=== PATIENT | female | born 1970 | race Caucasian/White ===

== ENCOUNTER → 2016-12-04 | Outpatient (CLI) | payer MEDICARE, OTHER ==
--- NOTE | 2016-12-04 11:57 | MM ---
Reason for exam: clinical finding. Last mammogram was performed 1 year and 10 months ago. Physical Findings: Nurse did not find any significant physical abnormalities on exam. MG 3D Diag Mammo W/Cad LETTY Bilateral CC and MLO view(s) were taken. XCCL view(s) were taken of the right breast. Prior study comparison: February 01, 2015, mammogram, performed at [facility]. There are scattered fibroglandular densities. Nodular asymmetry 11 o'clock right breast is unchanged. Accessory breast tissue noted at the right axilla. No significant new findings when compared with previous films. These results were verbally communicated with the patient and result sheet given to the patient on 12/04/16. ASSESSMENT: Incomplete: need additional imaging evaluation, BI-RAD 0 RECOMMENDATION: Ultrasound of the right breast. (as ordered by the clinician)
--- NOTE | 2016-12-04 11:59 | USB ---
Reason for exam: clinical finding. US Breast RT Right breast ultrasound including all four quadrants, the retroareolar region and axilla demonstrates benign appearing lymph node in the right axilla. No cystic or solid lesion seen. These results were verbally communicated with the patient and result sheet given to the patient on 12/04/16. ASSESSMENT: Negative, BI-RAD 1 RECOMMENDATION: Routine screening mammogram of both breasts in 1 year.
== END | disposition home or self-care (01) ==
LOC: RADMAMWWP 09:18
PROVIDERS: ATTEND Surgery
DX: N64.4 Mastodynia (principal); Q83.1 Accessory breast
CPT/HCPCS: 76641; G0204; G0279

== ENCOUNTER → 2019-08-11 | Outpatient (CLI) | payer MEDICARE ==
[2019-08-11 11:09] VITALS: BP 120/78; PULSE 100; RESP 16; TEMP 98.1; BMI 30.7
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
== END | disposition home or self-care (01) ==
LOC: WWCWWP 10:46
PROVIDERS: ATTEND Surgery
DX: Z53.9 Procedure and treatment not carried out, unspecified reason (principal)

== ENCOUNTER 2021-10-15 12:17 | Emergency (ER) | payer MEDICARE ==
[2021-10-15] MEDS ORDERED: ACETAMINOPHEN TAB 500 MG TAB PO STA (13:39)
[2021-10-15] MEDS ORDERED: SODIUM CHLORIDE 0.9% 1,000 ML IV ONE (13:39)
[2021-10-15] MEDS ORDERED: IBUPROFEN 600 MG TAB PO STA (13:39)
[2021-10-15] MEDS ORDERED: ALBUTEROL HFA INHALER INHALATION STA (13:40)
--- NOTE | 2021-10-15 13:42 | ED ---
General Adult HPI - General Chief complaint: Chest Pain Stated complaint: Covid symptoms Time Seen by Provider: 10/15/21 13:15 Source: patient, RN notes reviewed, old records reviewed Mode of arrival: wheelchair - History of Present Illness Initial comments: This is a 51-year-old female presents emergency Department complaining that starting yesterday she had a sore throat and a fever and complains of a little bit of a cough per patient states she has some chest tightness but no chest pain. Patient states she smoked up until May. Patient denies any loss of taste or smell patient denies any diarrhea. Patient denies any abdominal pain patient denies nausea vomiting. Patient states she does have exposure to people who she believes have COVID. Patient denies any patient denies numbness weakness. - Related Data Home Medications Medication Instructions Recorded Confirmed QUEtiapine [SEROquel] 800 mg PO HS 05/02/14 08/11/19 lamoTRIgine [LaMICtal] 200 mg PO BID 05/02/14 08/11/19 Metoprolol Tartrate [Lopressor] 50 mg PO BID 01/01/16 08/11/19 Lurasidone HCl [Latuda] 60 mg PO DAILY 08/11/19 08/11/19 Previous Rx's Medication Instructions Recorded Ibuprofen [Motrin] 800 mg PO Q8HR PRN #30 tab 06/21/15 Dexamethasone [Decadron] 6 mg PO DAILY #7 tablet 10/15/21 Allergies Allergy/AdvReac Type Severity Reaction Status Date / Time morphine AdvReac Nausea & Verified 10/15/21 13:21 Vomiting Review of Systems ROS Statement: Those systems with pertinent positive or pertinent negative responses have been documented in the HPI. ROS Other: All systems not noted in ROS Statement are negative. Past Medical History Past Medical History: GERD/Reflux, Pneumonia, Pulmonary Embolus (PE) Additional Past Medical History / Comment(s): KIDNEY STONES,BRONCHITIS, History of Any Multi-Drug Resistant Organisms: None Reported Past Surgical History: Appendectomy, Section, Cholecystectomy, Hysterectomy Additional Past Surgical History / Comment(s): UMBILICAL HERNIA REPAIR BABY, HIATAL HERNIA SX 07-25-14, PARTIAL HYSTERECTOMY, Past Anesthesia/Blood Transfusion Reactions: No Reported Reaction Additional Past Anesthesia/Blood Transfusion Reaction / Comment(s): CLAUSTERPHOBIA Past Psychological History: Anxiety, Bipolar, Depression, PTSD Smoking Status: Former smoker Past Alcohol Use History: Rare Past Drug Use History: None Reported - Past Family History Father Family Medical History: Diabetes Mellitus Additional Family Medical History / Comment(s): ETOH, BIPOLAR, Mother Family Medical History: Coronary Artery Disease (CAD), Hyperlipidemia General Exam - General Exam Comments Initial Comments: GENERAL: Patient is well-developed and well-nourished. Patient is nontoxic and well- hydrated and is in mild distress. ENT: Neck is soft and supple. No significant lymphadenopathy is noted. Oropharynx is clear. Moist mucous membranes. Neck has full range of motion without eliciting any pain. T EYES: The sclera were anicteric and conjunctiva were pink and moist. Extraocular movements were intact and pupils were equal round and reactive to light. Eyelids were unremarkable. PULMONARY: Unlabored respirations. Good breath sounds bilaterally. Patient has slight expiratory wheeze CARDIOVASCULAR: There is a regular rate and rhythm without any murmurs gallops or rubs. ABDOMEN: Soft and nontender with normal bowel sounds. No palpable organomegaly was noted. There is no palpable pulsatile mass. SKIN: Skin is clear with no lesions or rashes and otherwise unremarkable. NEUROLOGIC: Patient is alert and oriented x3. Cranial nerves II through XII are grossly intact. Motor and sensory are also intact. Normal speech, volume and content. Symmetrical smile. MUSCULOSKELETAL: Normal extremities with adequate strength and full range of motion. No lower extremity swelling or edema. No calf tenderness. LYMPHATICS: No significant lymphadenopathy is noted PSYCHIATRIC: Normal psychiatric evaluation. Course Vital Signs 10/15/21 10/15/21 13:16 13:38 Temperature 101.1 F H 102.9 F H Pulse Rate 96 Respiratory 18 Rate Blood Pressure 128/75 O2 Sat by Pulse 95 Oximetry Medical Decision Making - Medical Decision Making EKG shows sinus rhythm at 94 bpm WV interval 238 QRS is 94 QT interval 324 QTC is 405. Patient's EKG shows no ST segment elevation or depression. Patient does have an occasional PAC. Chest x-ray shows some early bilateral infiltrates Patient received a monoclonal antibodies. She received Motrin and Tylenol as well. Patient got a fluid bolus. Patient be sent home on steroids. - Lab Data Lab Results 10/15/21 Range/Units 13:24 Coronavirus (PCR) Detected A (Not Detectd) Disposition Clinical Impression: Pneumonia due to COVID-19 virus Disposition: HOME SELF-CARE Instructions (If sedation given, give patient instructions): Coronavirus Disease 2019 (COVID-19) Prescriptions: Dexamethasone [Decadron] 6 mg PO DAILY #7 tablet Is patient prescribed a controlled substance at d/c from ED?: No Referrals: Nonstaff,Physician [Primary Care Provider] - 1-2 days Time of Disposition: 14:31
--- NOTE | 2021-10-15 14:16 | XR ---
EXAMINATION TYPE: XR chest 1V portable DATE OF EXAM: 10/15/2021 Comparison: 01/01/2016 Clinical History: 51-year-old female Short of breath and fever. Findings: Heart normal size. Aorta within normal limits. Pulmonary vasculature within normal limits. There are patchy opacities in both lower lungs. No pleural effusion. Impression: Patchy basilar opacities. Unable to exclude infiltrates/pneumonia.
[2021-10-15] MEDS ORDERED: BAMLANIVIMAB (EUA) 700 MG, ETESEVIMAB (EUA) 1,400 MG in SODIUM CHLORIDE 0.9% 50 ML IVPB ONE (14:30)
[2021-10-15] MEDS ORDERED: dexAMETHasone 2 MG TAB PO STA (14:32)
[2021-10-15] MEDS ORDERED: SODIUM CHLORIDE 0.9% 50 ML IVPB ONE (15:00)
[2021-10-15 17:18] VITALS: BP 119/61; PULSE 93; RESP 20; TEMP 99.5
== END 2021-10-15 16:37 | disposition home or self-care (01) ==
LOC: EC 12:17
DX: U07.1 COVID-19 (principal); J12.82 Pneumonia due to coronavirus disease 2019; K21.9 Gastro-esophageal reflux disease without esophagitis; F41.9 Anxiety disorder, unspecified; F31.9 Bipolar disorder, unspecified; F43.12 Post-traumatic stress disorder, chronic; Z88.5 Allergy status to narcotic agent; Z86.711 Personal history of pulmonary embolism; Z87.442 Personal history of urinary calculi; Z90.49 Acquired absence of other specified parts of digestive tract; Z90.710 Acquired absence of both cervix and uterus; Z87.891 Personal history of nicotine dependence
CPT/HCPCS: 96360; 99285; M0245; 71045; 87635; 93005

== ENCOUNTER 2023-01-16 11:56 | Day surgery (SDC) | payer MEDICARE ==
[~2023-01-16 11:56] MED LIST: DEXAMETHASONE SOD PHOSPHATE 4 MG/ML 1 ML VIAL IV ONE; HYDROmorphone 0.5 MG/0.5 ML SYRINGE IVP PRN; LACTATED RINGERS 1,000 ML IV SCH; LIDOCAINE 1% (10MG/ML) FOR IV START INTRADERMA PRN; ONDANSETRON 4 MG/2 ML VIAL IVP ONE
[2023-01-16 12:42] VITALS: TEMP 97.2
[2023-01-16] MEDS ORDERED: PROPOFOL 10 MG/ML 20 ML VIAL IV ONE (13:34)
[2023-01-16] MEDS ORDERED: HYDROmorphone (PF) 1 MG/ML ONE (13:34)
[2023-01-16] MEDS ORDERED: LIDOCAINE 2% INJ 20 MG/ML (2 ML VIAL) ONE (13:34)
[2023-01-16] MEDS ORDERED: ePHEDrine 50 MG/ML 1 ML VIAL ONE (13:34)
[2023-01-16] MEDS ORDERED: fentaNYL (PF) 50 MCG/ML 2 ML AMP ONE (13:34)
[2023-01-16] MEDS ORDERED: MIDAZOLAM 2 MG/2 ML VIAL ONE (13:34)
[2023-01-16] MEDS ORDERED: LACTATED RINGERS 1,000 ML IV ONE (15:52)
--- NOTE | 2023-01-16 16:03 | XR ---
Intraoperative/procedural fluoroscopic services were provided for left knee hardware removal. Total f luoroscopy time is 2 minutes 29 seconds with a total of 3 submitted images to PACS. Total [id number] G ycm2. Please see the operative note for further details.
--- NOTE | 2023-01-16 16:14 | P.OP ---
Date of Procedure: 01/16/23 Preoperative Diagnosis: 1. Symptomatic hardware, left knee 2. Prior left tibial plateau fracture status post open reduction internal fixation 3. Current every day cigarette smoker 4. Severe osteopenia Postoperative Diagnosis: Same Procedure(s) Performed: Hardware removal deep, left knee (proximal tibia) Anesthesia: PAGE Surgeon: Lorenzo Erwin Lawn Maintenance Worker #1: Annabelle Allred Estimated Blood Loss (ml): 50 Pathology: none sent Condition: stable Disposition: PACU Indications for Procedure: The patient is very pleasant 52-year-old female with a medical history significant for smoking one half pack of cigarettes a day and osteopenia who sustained a prior left tibial plateau fracture and underwent open reduction and internal fixation at an outside facility. She went on to heal her fracture but has had continued pain. Some of this pain seemed to be achieved able to her hardware. We also discussed the possibility of arthritis and/or intra-articular pathology contributing to her pain. Having failed nonsurgical treatment and having x-rays show healed fractures requested proceeding with hardware removal. I long discussion of the potential risks and Rotations of surgery including but certainly not limited to risks from anesthesia, superficial or deep infection, delayed wound healing, damage to local blood vessels or nerves, intraoperative fracture, postoperative fracture, continued or worsened pain, DVT, PE, other medical complications, a generalized to satisfaction with her surgical outcome, need for further surgery, and possibly loss of life or limb. The patient wished understanding of these potential complications will also is antalgic but other less common complications are possible. She understands the potential for continued pain in her knee. Description of Procedure: Patient identified in preoperative holding and the correct left leg was marked with my initials. I reviewed the consent form with the patient and her family. All their questions were answered. The patient was then brought back to the operating room by anesthesia. She was positioned on the vertebral her general anesthetic and preoperative antibiotics were given. A tourniquet was applied to the proximal aspect the left leg. The right leg was secured to the table with foam and tape. A bone foam ramp was placed on the left leg to facilitate imaging. A nonsterile 10:15 drape was used to isolate the left leg. A p resurgical scrub was performed with a chlorhexidine scrub brush. The left leg was then prepped and draped in the standard sterile fashion. Prior to starting surgery timeout was performed identifying the correct patient, operative extremity, and procedure. The patient's leg was then elevated, exsanguinated with an Esmarch bandage, and the tourniquet was inflated to 250 mmHg. I began by outlining the prior scar over the posterior medial aspect of the proximal tibia. Skin incision was made with a scalpel dissection was carried down carefully through subcu tissue with tenotomy scissors. The periosteum over the tibia was sharply incised in line with the skin incision. The plate was identified along the posterior aspect of the tibia and the 3 screws were exposed and sequentially removed. A small amount of overlying bone was removed from the plate which was then carefully removed. Attention was then turned to the 3 proximal subchondral raft screws placed from medial to lateral. Each screw was identified and carefully removed. The most posterior screw was completely covered with bone and I had to carefully remove the overlying bone to find the screw head. The wound was then thoroughly irrigated and closed in layers. Attention was then turned to the proximal aspect the lateral tibia. The prior scar over the anterolateral aspect of the patellar tendon was marked out an inci elda was made with a scalpel. Dissection was carried down carefully subcutissue. Dissection was then made lateral to the patellar tendon down to the proximal tibia. Using fluoroscopy the lateral 2 screws were identified and carefully removed. Both screws were countersunk below the tibia and had overlying bone which had carefully been removed. The wound was thoroughly irrigated and closed in layers. Final fluoroscopic images were taken verifying hardware removal. Sterile dressings were applied. The tourniquet was let down. The patient was awoken from her anesthetic, transferred from the or table to the [facility], and brought to recovery patellar procedure well. Annabelle Allred PA-C was read as a skilled surgical first assistant to the surgical complexity of the case for patient positioning, retraction, hardware removal, closure of wound, and apposition of dressing. Plan: The patient is going to attempt to discharge home as an outpatient. She should remain toe-touch weightbearing on the left lower extremity crutches. A knee immobilizer was placed. She'll follow-up in the office on Thursday for a hinged knee brace. She will receive pain medications and a stool softener. Aspirin for DVT prophylaxis. She will need follow-up in the office in 2 weeks for weightbearing x-rays of the left knee, 4 views.
[2023-01-16] MEDS ORDERED: HYDROmorphone 0.5 MG/0.5 ML SYRINGE IVP ONE ×2 (16:18→16:25)
[2023-01-16] MEDS ORDERED: MIDAZOLAM 2 MG/2 ML VIAL IVP ONE (16:30)
--- NOTE | 2023-01-16 17:21 | P.ANPRN ---
Procedure Note - Anesthesia - Nerve Block Performed Left Adductor Canal Single Time Out Performed: Yes Date of Procedure: 01/16/23 Procedure Start Time: 16:29 Procedure Stop Time: 16:37 Location of Patient: Phase I Indication: Acute Post-Operative Pain, Requested by Surgeon Sedation Type: Sedate with meaningful contact maintained Preparation: Sterile Prep Position: Supine Needle Types: Pajunk Needle Gauge: 21 Ultrasound used to visualize needle placement: Yes Ultrasound used to observe medication spread: Yes Injectate: 0.5% Ropivacaine (see comment for volume) (20 ml +4 mg Dexamethason) Blood Aspirated: No Pain Paresthesia on Injection Noted: No Resistance on Injection: Normal Image Stored and Saved: Yes Events: Uneventful and Well Tolerated
[2023-01-16] MEDS ORDERED: HYDROcodone/APAP 10-325MG 1 EACH TAB ONE (17:55)
[2023-01-16] MEDS ORDERED: HYDROcodone/APAP 10-325MG 1 EACH TAB PO ONE (17:57)
[2023-01-16 18:22] VITALS: BP 121/58; PULSE 72; RESP 91
== END 2023-01-16 18:51 | disposition home or self-care (01) ==
LOC: OR 11:56
PROVIDERS: ATTEND Orthopaedic Surgery
DX: T84.84XA Pain due to internal orthopedic prosthetic devices, implants and grafts, initial encounter (principal)
CPT/HCPCS: 73562; 20680; J2250; J1100; J0690; J2405; J3010; J1170 ×2; J2704; J2001